=== PATIENT | male | born 1940 | race Caucasian/White ===

== ENCOUNTER 2017-11-17 22:58 | Inpatient (IN) | payer MEDICARE ==
[2017-11-18] MEDS ORDERED: SODIUM CHLORIDE 0.9% 1000ML 1,000 ML IVS ONE (00:06)
--- NOTE | 2017-11-18 00:11 | ED.PDOC ---
History of Present Illness - General Chief Complaint: General Stated Complaint: weakness, repeated falls in the last month Time Seen by Provider: 11/17/17 23:31 Source: patient, family Exam Limitations: no limitations Additional Information: PT C/O 1 MONTH HX OF PROGRESSIVE WEAKNESS WITH FALL TODAY. HAS BEEN SEEN BY PCP MULTIPLE TIMES AND AT THE [facility] YESTERDAY. STATE HE HAS HAD PROGRESSIVE WEAKNESS WITH AMBULATION TO THE POINT NOW THAT HE CANNOT WALK TO THE BATHROOM AND BACK WITHOUT BECOMING WEAK AND FEELING LIKE HE'S GOING TO FALL. - History of Present Illness Initial Comments: LONG TIME SMOKER WITH NO DX OF COPD Severity: moderate Improving Factors: nothing Worsening Factors: movement Associated Symptoms: denies symptoms Allergies/Adverse Reactions: Allergies NO KNOWN ALLERGY Allergy (Verified 11/17/17 23:14) Home Medications: Ambulatory Orders Furosemide Tab [Lasix Tab] 40 mg PO DAILY #10 tab 01/11/16 Oseltamivir Phosphate [Tamiflu] 75 mg PO BID #10 cap 01/11/16 Review of Systems - Review of Systems Constitutional: Denies: chills, fever EENTM: States: no symptoms reported Respiratory: States: short of breath. Denies: cough, orthopnea, wheezing Cardiology: Denies: chest pain, palpitations Gastrointestinal/Abdominal: Denies: abdominal pain, nausea, vomiting Genitourinary: States: no symptoms reported Musculoskeletal: States: no symptoms reported Skin: States: no symptoms reported Neurological: States: weakness - GENERALIZED, NO FOCAL WEAKNESS Endocrine: States: no symptoms reported Hematologic/Lymphatic: States: no symptoms reported Past Medical History (General) - Patient Medical History Hx Seizures: No Hx Stroke: No Hx Dementia: No Hx Asthma: No Hx of COPD: No Hx Cardiac Disorders: No Hx Congestive Heart Failure: No Hx Pacemaker: No Hx Hypertension: No Hx Thyroid Disease: No Hx Diabetes: No Hx Gastroesophageal Reflux: No Hx Renal Disease: No Hx Cancer: No Hx of HIV: No Hx Hepatitis C: No Hx MRSA: No Surgical History: no surgical history - Vaccination History Hx Tetanus, Diphtheria Vaccination: No - unkn Hx Influenza Vaccination: No Hx Pneumococcal Vaccination: No - Social History Hx Tobacco Use: Yes Hx Chewing Tobacco Use: No Hx Alcohol Use: No Hx Substance Use: No Hx Substance Use Treatment: No Hx Depression: Yes Hx Physical Abuse: No Hx Emotional Abuse: No Hx Suspected Abuse: No - Female History Patient : No Family Medical History - Family History Mother Living Status: Hx Family Cancer: Yes - bone Physical Exam - Physical Exam General Appearance: Frail, No apparent distress Eye Exam: bilateral normal Ears, Nose, Throat: hearing grossly normal, normal ENT inspection Neck: non-tender, full range of motion, supple Respiratory: other - DIMINISHED KHANH, NO W/R/R Cardiovascular/Chest: regular rate, rhythm, no murmur Gastrointestinal/Abdominal: normal bowel sounds, soft, no organomegaly Back Exam: normal inspection, no CVA tenderness Extremity: normal range of motion, normal inspection, no pedal edema Neurologic: alert, normal mood/affect Skin Exam: other - HOT DRY Lymphatic: no adenopathy Progress - Progress Progress: 11/18/17 00:51 AMBULATED WITH SATS CONSISTENTLY ABOVE 90% - EKG/XRAY/CT XRAY: chest - RML INFILTRATE Departure - Departure Clinical Impression: COPD suggested by initial evaluation, Elevated blood pressure reading, Tobacco abuse Pneumonia Qualifiers: Pneumonia type: due to Pneumococcus Laterality: right Lung location: middle lobe of lung Qualified Code(s): J13 - Pneumonia due to Streptococcus pneumoniae Time of Disposition: :13 - D/W ELOISA CANAS, AGREES TO ADMIT Disposition: Discharge to Home or Self Care Condition: Fair Departure Forms: ED Discharge - Pt. Copy, Patient Portal Self Enrollment Referrals: FELISA CROSS [Primary Care Provider] - 1-2 Weeks Home Medications: Ambulatory Orders Furosemide Tab [Lasix Tab] 40 mg PO DAILY #10 tab 01/11/16 Oseltamivir Phosphate [Tamiflu] 75 mg PO BID #10 cap 01/11/16
--- NOTE | 2017-11-18 00:29 | RAD ---
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 Left lung is clear. Small right pleural effusion. No identifiable pneumothorax. Prominence of the bilateral hilar shadows. Aortic atherosclerosis. Unremarkable cardiac silhouette. Impression: Focal opacity along the periphery of the right middle lung zone may represent focal scarring, pneumonia, or pulmonary nodule. Consider follow-up chest radiograph in three months. Prominence of the bilateral hilar shadows may be seen with lymphadenopathy or prominent pulmonary vasculature. Electronically signed by: Howie Kong MD 11/18/2017 12:28 AM LOBSTER FISHERMAN
[2017-11-18] MEDS ORDERED: cefTRIAXone SODIUM 1 GM in SODIUM CHL 0.9% 50ML MIN-BAG+ 50 ML IVPB ONE (00:54)
[2017-11-18] MEDS ORDERED: AZITHROMYCIN IV 500 MG in SODIUM CHLORIDE 0.9% 250ML 250 ML IVPB ONE (00:54)
[2017-11-18] MEDS ORDERED: cefTRIAXone SODIUM 1 GM VIAL ONE ×3 (00:58→19:45)
[2017-11-18] MEDS ORDERED: SODIUM CHL 0.9% 50ML MIN-BAG+ 50 ML IVPB ONE ×3 (00:59→19:45)
--- NOTE | 2017-11-18 01:20 | HP ---
HISTORY OF PRESENT ILLNESS: This 77-year-old, white male is admitted to the hospital from the Emergency Room because of worsening shortness of breath and fatigue and difficulty walking, noted to be worsening for the last week. He has had increasing severe weakness and exertional dyspnea off and on for the last 3 to 4 months. He has gotten to the point where he cannot even walk because of extreme weakness. He was seen a number of times at the [facility] this past week and had a DVT ultrasound exam which did not show any DVT present in his lower extremities. He describes no significant fever and chills or sputum production, no hemoptysis. He is describing significant weakness to the point where it makes him unable to do what he feels like he should be able to do. 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 He does have various stressors at home which may contribute a little bit to some of his fatigue state. The patient was admitted to the hospital when it was found that he had a right middle lobe pneumonia, elevated blood pressure with fever and low oxygen as well as a symptomatically low sodium level. He will require physical therapy evaluation as well. PAST MEDICAL HISTORY: 1. History of hypertension on no treatment. PAST SURGICAL HISTORY: To be determined. CURRENT MEDICATIONS: None known. ALLERGIES: NEGATIVE. FAMILY HISTORY: Positive for cerebrovascular accidents, otherwise unremarkable. 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 He has smoked tobacco for over 65 years from 1 to 2 packs per day in the past, now about 1/3 pack per day. REVIEW OF SYSTEMS: GENERAL: He has had some recent weight gain. No fever or chills. HEENT: No significant hearing or visual disturbances. LUNGS: Significant shortness of breath upon exertion, cough, but no sputum, no hemoptysis. CARDIOVASCULAR: No significant palpitations or chest pains. Blood pressure was elevated when he came into the Emergency Room. GASTROINTESTINAL: Appetite has been fairly good. No significant blood in his stool. GENITOURINARY: No dysuria. EXTREMITIES: Very weak in his lower extremities to the point where he is unable to walk. NEUROLOGIC: Leg weakness is noted. No other focal neurologic deficits are evident. PHYSICAL EXAMINATION: VITAL SIGNS: Blood pressure initially was 208/77 with temperature up to 102.9 and now afebrile. Saturation this morning 91% on 1 liter while room air saturation was 85% on room air after admission. Weight 60.3 kg. GENERAL: The patient is awake and alert. He is noticeably weaker and complains of dyspnea upon minimal exertion. He is able to talk in full sentences. HEENT: Within normal limits. LUNGS: Diminished breath sounds with some rhonchi, more prominent on the left than the right with slightly diminished breath sounds on the right base. CARDIOVASCULAR: Heart tones are normal with no significant murmurs at this time. ABDOMEN: Soft with no organomegaly, masses or tenderness. No constipation. EXTREMITIES: Fairly good muscle tone. Trace of edema only. Fairly good range of motion, though weak. NEUROLOGIC: The patient is awake, alert, oriented and communicative. Generalized weakness especially in the lower extremities to evaluated with physical therapy's assistance. LABORATORY: White count 5,100, hemoglobin 13.4. Chemistries show sodium low at 129, potassium 3.8, BUN 23, glucose 103, serum osmolality low at 263. AST 59 , albumin 3.2. Urinalysis showed small amount of hematuria. Blood cultures as well as influenza type A/B nasal swab are negative. Chest x-ray shows evidence of a right middle lobe infiltrate suggesting a pneumonia with followup necessary. Chronic obstructive pulmonary disease present. ASSESSMENT: 1. Acute right middle lobe pneumonia, probably community acquired with cultures pending, started on ceftriaxone and azithromycin. 2. Chronic obstructive pulmonary disease with moderate exacerbation, requiring pulmonary hygiene, bronchodilators and anti-inflammatory treatment. 3. Chronic tobacco abuse, encouraged to stop. 4. Hypoxia, observe closely for the need for oxygen after treatment has been completed. 5. History of hypertension. 6. Febrile illness. 7. Hyponatremia, sodium 129. The patient is symptomatic with altered level of consciousness, significant weakness. 8. History of dystaxia secondary to the significant weakness, possibly contributed to by the hyponatremia as well as the underlying pneumonia which is also contributing to significant weakness. PLAN: The patient will be started on low dose of Norvasc for the significant blood pressure that was noted on admission. Continue with medication nebulizers. Try an ambulation study to evaluate the need for oxygen. Physical therapy to evaluate for rehab potential. Await TSH and cardiac enzymes. Try prednisone, anti-inflammatory. Place on fluid restrictions with some normal saline IV and a touch of loop diuresis to see if it will help begin the process of correcting the hyponatremic state. Again, strongly encouraged to stop smoking. [facility][id number] [facility]
[2017-11-18] MEDS ORDERED: SODIUM CHLORIDE 0.9% 250ML 250 ML ONE (01:30)
[2017-11-18] MEDS ORDERED: AZITHROMYCIN IV 500 MG VIAL IVPB ONE (01:30)
[2017-11-18] MEDS ORDERED: SODIUM CHLORIDE 0.9% (FLUSH) 10 ML SYG IV PRN (02:33)
[2017-11-18] MEDS ORDERED: ALBUTEROL SULFATE 2.5 MG/3 ML VIAL NEB PRN (02:33)
[2017-11-18] MEDS ORDERED: ACETAMINOPHEN 325 MG TAB PO PRN (02:33)
[2017-11-18] MEDS: IV SET AND CAP CHANGE INJ INJ SCH (03:06)
[2017-11-18] MEDS ORDERED: ALBUTEROL SULFATE 2.5 MG/3 ML VIAL NEB ONE (03:26)
[2017-11-18] MEDS: KCL 20 MEQ/NS 1,000 ML IVS PRN ×2 (03:28→17:37)
[2017-11-18] MEDS: ALBUTEROL SULFATE 2.5 MG/3 ML VIAL NEB SCH ×2 (03:59→09:50)
[2017-11-18] MEDS: IPRATROPIUM/ALBUTEROL 3 ML VIAL INH SCH ×4 (08:45→20:28)
[2017-11-18] MEDS: cefTRIAXone SODIUM 1 GM in SODIUM CHL 0.9% 50ML MIN-BAG+ 50 ML IVPB SCH (12:15)
[2017-11-18] MEDS ORDERED: FUROSEMIDE INJ 20 MG/2 ML VIAL IV ONE (13:08)
[2017-11-18] MEDS: amLODIPine BESYLATE 5 MG TAB PO SCH (13:51)
[2017-11-18] MEDS: predniSONE 10 MG TAB PO SCH (13:52)
[2017-11-19] MEDS: cefTRIAXone SODIUM 1 GM in SODIUM CHL 0.9% 50ML MIN-BAG+ 50 ML IVPB SCH ×2 (00:56→13:30)
[2017-11-19] MEDS: KCL 20 MEQ/NS 1,000 ML IVS PRN ×2 (05:30→20:08)
--- NOTE | 2017-11-19 06:57 | RAD ---
EXAM: Two view chest. INDICATION: Pneumonia. COMPARISON: Chest x-ray: 11/18/2017. FINDINGS: Again noted is scarring/atelectasis along the right midlung. There is no focal consolidation. The heart is normal in size. There is no pneumothorax or pleural effusion. The bones are unchanged. IMPRESSION: No acute cardiopulmonary process. Electronically signed by: Eduardo Mathew MD 11/19/2017 6:56 AM PRINTING PRESS OPERATOR Workstation: [id number]
[2017-11-19] MEDS ORDERED: SODIUM CHLORIDE 0.9% 250ML 250 ML ONE (07:24)
[2017-11-19] MEDS ORDERED: AZITHROMYCIN IV 500 MG VIAL IVPB ONE (07:25)
[2017-11-19] MEDS: predniSONE 10 MG TAB PO SCH (08:22)
[2017-11-19] MEDS: amLODIPine BESYLATE 5 MG TAB PO SCH (08:22)
[2017-11-19] MEDS: IPRATROPIUM/ALBUTEROL 3 ML VIAL INH SCH ×4 (08:27→20:13)
[2017-11-19] MEDS ORDERED: AZITHROMYCIN IV 500 MG in SODIUM CHLORIDE 0.9% 250ML 250 ML IVPB SCH (09:00)
[2017-11-19] MEDS: LEVOTHYROXINE SODIUM 0.075 MG TAB PO SCH (09:44)
--- NOTE | 2017-11-19 11:29 | PN ---
DATE: 11/19/17 SUBJECTIVE: The patient is lying in the bed. His respiratory efforts seem to be improving today, but he has not been up ambulating and has not had a desaturation study yet. He is now the second day of parenteral therapy for a previously diagnosed right middle lobe pneumonia. His weakness persists, but hopefully will be able to improve. Awaiting physical therapy evaluation to check on his rehab potential. Appetite is fair. OBJECTIVE: VITAL SIGNS: Afebrile. Pulse 64. Blood pressure 188/83. Pulse oximetry 90% on 1 liter. Awaiting some room air determinations to see if he is in need of oxygen before he is able to go home to be performed today. GENERAL: He is still very weak, but seems to be more alert and communicative today. He is wishing a shower and a shave today. LUNGS: He has rhonchi and pulmonary bronchial hygiene with percussion is being used and he feels it will help, but he needs to tilt his head down a little bit in order to help gravitate some of the secretions out. He has not produced a sputum specimen yet. HEART: Regular. EXTREMITIES: Last evening, he did not like the SCDs, but we are going to try to put them back on him today. LABORATORY: White count is down from 5,000 to 2,500 with 22% bands with repeat followup necessary. Hemoglobin 12.2, platelet count 102. Chemistry shows sodium up from 129 to 135. BUN improved from 23 to 17. Glucose 86. Calcium 8 , albumin 3. TSH is elevated at 7.7. Blood cultures negative. Urinalysis shows small amount of hematuria. RADIOLOGY: Chest x-ray shows some clearing of the right middle lobe infiltrate previously noted. ASSESSMENT: 1. Acute right middle lobe pneumonia, probably community acquired, with negative blood cultures thus far, being treated with ceftriaxone and azithromycin. 2. Chronic obstructive pulmonary disease with an exacerbation, requiring pulmonary hygiene, bronchodilators and anti-inflammatory treatment, showing slight improvement. 3. Chronic tobacco abuse, encouraged to stop. 4. Hypoxia, continue observation to determine whether oxygen is required at home. 5. History of hypertension. 6. Febrile illness, showing immunotherapy. 7. Hyponatremia, sodium 129, improving to 135. 8. History of dystaxia secondary to the significant weakness, possibly contributed to by symptomatic hyponatremia with associated pneumonia and general deconditioning noted. 9. Possible early pancytopenia with low white count, low hemoglobin and low platelets with observation necessary and associated bandemia. The patient was started on low dose prednisone and observe closely with repeat evaluation tomorrow. PLAN: Continue with blood pressure observation as well as determine his need for oxygen prior to discharge home. Physical therapy to evaluate for his rehab potential. TSH is elevated and started on Synthroid supplementation. Again strongly encouraged to stop all smoking. Reevaluation in the morning. #[id number] [facility]
[2017-11-19] MEDS ORDERED: SODIUM CHL 0.9% 50ML MIN-BAG+ 50 ML IVPB ONE (13:25)
[2017-11-19] MEDS ORDERED: cefTRIAXone SODIUM 1 GM VIAL ONE (13:25)
[2017-11-20] MEDS ORDERED: SODIUM CHL 0.9% 50ML MIN-BAG+ 50 ML IVPB ONE ×3 (00:34→19:48)
[2017-11-20] MEDS ORDERED: cefTRIAXone SODIUM 1 GM VIAL ONE ×3 (00:35→19:48)
[2017-11-20] MEDS: cefTRIAXone SODIUM 1 GM in SODIUM CHL 0.9% 50ML MIN-BAG+ 50 ML IVPB SCH ×2 (01:01→12:05)
[2017-11-20] MEDS: LEVOTHYROXINE SODIUM 0.075 MG TAB PO SCH (06:36)
[2017-11-20] MEDS: IPRATROPIUM/ALBUTEROL 3 ML VIAL INH SCH ×4 (07:17→20:25)
[2017-11-20] MEDS ORDERED: SODIUM CHLORIDE 0.9% 250ML 0 ML ONE (08:23)
[2017-11-20] MEDS ORDERED: AZITHROMYCIN IV 500 MG VIAL IVPB ONE (08:23)
[2017-11-20] MEDS: predniSONE 10 MG TAB PO SCH (08:48)
[2017-11-20] MEDS: AZITHROMYCIN 250 MG TAB PO SCH (08:48)
[2017-11-20] MEDS: amLODIPine BESYLATE 5 MG TAB PO SCH (08:49)
[2017-11-20] MEDS ORDERED: POTASSIUM CHLORIDE 20 MEQ TAB PO ONE (08:58)
[2017-11-20] MEDS: SODIUM CHLORIDE 0.9% (FLUSH) 10 ML SYG IV SCH ×2 (09:28→20:53)
[2017-11-20] MEDS ORDERED: amLODIPine BESYLATE 5 MG TAB PO ONE (10:04)
[2017-11-20] MEDS ORDERED: amLODIPine BESYLATE 5 MG TAB ONE (10:10)
--- NOTE | 2017-11-20 11:30 | PN ---
SUPERVISING PHYSICIAN: Howie Tabor MD DATE: 11/20/17 SUBJECTIVE: The patient is sitting in his hospital bed. He is in no acute distress. He denies any shortness of breath, nausea, vomiting, diarrhea, or chest pain, although he says he has not gotten up much because at times gets quite short of breath even at rest. OBJECTIVE: VITAL SIGNS: Afebrile. Heart rate 73. Respiratory rate 20. Blood pressure 187/84. O2 saturation has been as low as 90% on 2 liters nasal cannula. It is up to 93% right now. LUNGS: Diminished breath sounds throughout. No wheezes noted. He becomes tachypneic at rest with a respiratory rate 22 to 24. CARDIAC: Regular rate and rhythm. GASTROINTESTINAL: Abdomen is soft, nondistended, nontender. Bowel sounds are positive. EXTREMITIES: No cyanosis, clubbing or edema. NEUROLOGIC: Awake, alert and oriented times three. LABORATORY: WBC 2.3, hemoglobin 12.5, hematocrit 393., platelet count 102. Sodium 136, potassium 3.5, chloride 99, calcium 7.8. Preliminary blood cultures showed no growth after 24 hours. All other labs and films have been reviewed via the EMR. ASSESSMENT: 1. Acute right middle lobe pneumonia, most likely community acquired, with negative blood cultures, currently being treated with ceftriaxone and azithromycin. 2. Chronic obstructive pulmonary disease with acute exacerbation, that will continue to require aggressive pulmonary hygiene, bronchodilators and anti- inflammatory treatment. He is showing slight improvement. 3. Chronic tobacco abuse, encouraged to stop. 4. Hypoxia, most likely will need home oxygen as he has dyspnea at rest and his oxygen saturations drop down into the mid-80s when oxygen is taken off. 5. Hypertension. 6. Febrile illness. 7. Leukopenia as well as thrombocytopenia, unknown etiology. 8. 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 PLAN: We will continue present supportive care. His blood pressure has been quite elevated since admission, so I will increase his amlodipine from 2.5 to 5 mg daily. We have initiated orders for home oxygen as well as nebulizer treatments at home. I have ordered routine labs in the morning as well as chest x-ray. I have given him one dose extra of potassium today and discontinued his IV fluids. He will need a hematology referral on discharge due to his pancytopenia. At this point, he has agreed to see Dr. Gordon at [facility] and family members as well as the patient would like to explore the possibility of being discharged to a correction for physical therapy and conditioning. Otherwise, we will continue to monitor the patient closely and follow as needed. Dr. Tabor is the collaborating physician and available for consultation. [facility][id number] [facility]
[2017-11-20] MEDS ORDERED: predniSONE 10 MG TAB PO ONE (14:30)
[2017-11-21] MEDS: cefTRIAXone SODIUM 1 GM in SODIUM CHL 0.9% 50ML MIN-BAG+ 50 ML IVPB SCH ×2 (01:13→14:10)
[2017-11-21] MEDS: IV SET AND CAP CHANGE INJ INJ SCH (03:11)
[2017-11-21] MEDS: LEVOTHYROXINE SODIUM 0.075 MG TAB PO SCH (06:29)
--- NOTE | 2017-11-21 07:31 | RAD ---
EXAM DESCRIPTION: Chest,2 Views CLINICAL HISTORY: pna follow-up pneumonia COMPARISON: November 19, 2017 FINDINGS: Two-view chest x-ray shows enlargement of cardiac silhouette without pulmonary vascular congestion. Lungs are normally aerated. Interstitial nodular densities in the right perihilar and right lower lobe region are again seen with mild increased interstitial markings in the left lower lobe retrocardiac region. Lateral view shows blunting of the posterior costophrenic angle slightly increased from previous exam. Mild disc degenerative changes of the spine are seen. IMPRESSION: Right perihilar and lower lobe infiltrates with questionable increased interstitial markings in the left lower lobe are again seen to slightly increased from previous exam suggesting areas of pneumonia versus pneumonitis and/or atelectasis. Continued follow-up until resolution to exclude neoplastic process is recommended. Small bilateral pleural effusions are slightly increased from previous exam. Electronically signed by: Camden Thomas MD 11/21/2017 7:30 AM NEUROLOGY MANAGER
[2017-11-21] MEDS: IPRATROPIUM/ALBUTEROL 3 ML VIAL INH SCH ×3 (08:12→18:00)
[2017-11-21] MEDS ORDERED: LISINOPRIL 10 MG TAB PO SCH (09:00)
[2017-11-21] MEDS ORDERED: predniSONE 20 MG TAB PO SCH (09:00)
[2017-11-21] MEDS ORDERED: amLODIPine BESYLATE 5 MG TAB PO SCH (09:00)
[2017-11-21] MEDS: SODIUM CHLORIDE 0.9% (FLUSH) 10 ML SYG IV SCH (09:19)
[2017-11-21] MEDS: AZITHROMYCIN 250 MG TAB PO SCH (09:19)
[2017-11-21] MEDS ORDERED: cefTRIAXone SODIUM 1 GM VIAL ONE (14:05)
[2017-11-21] MEDS ORDERED: SODIUM CHL 0.9% 50ML MIN-BAG+ 50 ML IVPB ONE (14:05)
[2017-11-21 16:02] VITALS: O2SAT 92
[2017-11-21 16:45] VITALS: BP 165/88; TEMP 97.6
--- NOTE | 2017-11-29 18:14 | DS ---
SUPERVISING PHYSICIAN: Howie Tabor M.D. DISCHARGE DIAGNOSIS: 1. Acute right middle lobe pneumonia, most likely community acquired, with negative blood cultures, currently being treated with ceftriaxone and azithromycin. 2. Chronic obstructive pulmonary disease with acute exacerbation, that will continue to require aggressive pulmonary hygiene, bronchodilators and anti- inflammatory treatment. He is showing slight improvement. 3. Chronic tobacco abuse, encouraged to stop. 4. Hypoxia, most likely will need home oxygen as he has dyspnea at rest and his oxygen saturations drop down into the mid-80s when oxygen is taken off. 5. Hypertension. 6. Febrile illness. 7. Leukopenia as well as thrombocytopenia, unknown etiology. 8. 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 HISTORY OF PRESENT ILLNESS: This is a 77 year-old male patient who was admitted to the hospital from the Emergency Room due to worsening shortness of breath, fatigue and difficulty walking that had worsened over the week prior to admission. He had increasing severe weakness and exertional dyspnea off and on for the last 3 to 4 months. He lives by himself and he had gotten to the point where he could not even walk because of his weakness. He had been seen a number of times in [place]. He also had a DVT ultrasound that was negative. He had had no significant fever or chills. He has minimal support at home and a family member has been with the patient most of the time. He was admitted for right middle lobe pneumonia and elevated blood pressure plus a fever and low oxygen saturation. HOSPITAL COURSE: Over the course of his hospital stay, his vital signs stabilized. He had a low WBC that may be chronic in nature but it had gotten as low at 2.1 on date of discharge. He also had some thrombocytopenia that on the day of discharge was 112. His electrolytes are mostly within normal limits. His blood pressure cultures showed no growth after 5 days. His flu swabs were negative. After extensive talks with the family it was decided that the patient would benefit from being admitted to [facility] for physical therapy, strengthening and conditioning. He was felt to be unsafe to go home, so he will be discharged to [facility] today. DISCHARGE PLAN: The patient will be discharged to [facility] today for strengthening and conditioning with physical therapy. He is to followup with his primary care provider, Dr. Baljit Oliva, in the next 1 to 2 weeks. He is to resume his previous diet and increase his activity as tolerated and as per Physical Therapy. He is to return to the hospital for any further problems or complications. It may be beneficial for the patient to see Hematology due to his pancytopenia. DISCHARGE MEDICATIONS: 1. Albuterol. 2. Amlodipine. 3. Azithromycin. 4. DuoNeb. 5. Synthroid. 6. Lisinopril. 7. Prednisone. #[id number] and [id number] [facility]
== END 2017-11-21 18:15 | DRG 640 ==
LOC: ER 22:58 → MS 11-18 01:18 → OBSVTOIN 11-18 01:18
PROVIDERS: ADMIT Nurse Practitioner Family; ATTEND Nurse Practitioner Acute Care
DX: E87.1 Hypo-osmolality and hyponatremia (principal); J18.9 Pneumonia, unspecified organism; J44.1 Chronic obstructive pulmonary disease with (acute) exacerbation; R09.02 Hypoxemia; I10 Essential (primary) hypertension; D72.819 Decreased white blood cell count, unspecified; D69.6 Thrombocytopenia, unspecified; R29.6 Repeated falls; F17.210 Nicotine dependence, cigarettes, uncomplicated; R53.1 Weakness

== ENCOUNTER → 2017-11-28 | Outpatient (CLI) | payer MEDICARE | LOC: GT 07:56 | PROVIDERS: ATTEND Internal Medicine | DX: E03.9 Hypothyroidism, unspecified (principal) | CPT/HCPCS: 36415; 84443; P9603 ==

== ENCOUNTER 2017-12-01 15:04 | Emergency (ER) | payer MEDICARE ==
[2017-12-01 15:40] VITALS: TEMP 98.7; O2SAT 96
--- NOTE | 2017-12-01 16:01 | ED.PDOC ---
History of Present Illness - General Chief Complaint: Cardiovascular Problem Stated Complaint: hypertension Time Seen by Provider: 12/01/17 15:53 Source: patient Exam Limitations: no limitations - History of Present Illness Initial Comments: Philip Cancino 77 y/o male came to accompanied by son after it was noted blood pressure was elevated today at the [facility] with systolic [id number] according to patient stated did not take his Bp medication today.Also stated had some dull headache with left side of head throbbing.No blurry vision,no chest pains.He was hospitalized for PNA last week and was discharge to [place]. Timing/Duration: 4-6 hours Severity: moderate Improving Factors: nothing Worsening Factors: other - non compliance with bp medications Associated Symptoms: other - see hpi Allergies/Adverse Reactions: Allergies NO KNOWN ALLERGY Allergy (Verified 11/17/17 23:14) Home Medications: Ambulatory Orders Albuterol Sulfate Nebs [Proventil Nebs] 2.5 mg NEB PRN PRN vial 11/21/17 Azithromycin Tab [Zithromax Tab] 250 mg PO QD #3 tab 11/21/17 Ipratropium/Albuterol [Duoneb] 3 ml INH RTQID vial 11/21/17 Levothyroxine Sodium [Synthroid] 0.075 mg PO DAILY@0630 tab 11/21/17 Lisinopril [Prinivil] 20 mg PO DAILY tab 11/21/17 amLODIPine BESYLATE [Norvasc] 5 mg PO DAILY tab 11/21/17 predniSONE See Taper PO DAILY #30 tab 11/21/17 Review of Systems - Review of Systems Constitutional: States: no symptoms reported EENTM: States: no symptoms reported Respiratory: States: no symptoms reported Cardiology: States: no symptoms reported Gastrointestinal/Abdominal: States: no symptoms reported Genitourinary: States: no symptoms reported Musculoskeletal: States: no symptoms reported Skin: States: no symptoms reported Neurological: States: see HPI, headache All other Systems: Reviewed and Negative, No Change from Baseline Past Medical History (General) - Patient Medical History Hx Seizures: No Hx Stroke: No Hx Dementia: No Hx Asthma: No Hx of COPD: No Hx Cardiac Disorders: No Hx Congestive Heart Failure: No Hx Pacemaker: No Hx Hypertension: Yes Hx Thyroid Disease: No Hx Diabetes: No Hx Gastroesophageal Reflux: No Hx Renal Disease: No Hx Cancer: No Hx of HIV: No Hx Hepatitis C: No Hx MRSA: No Surgical History: no surgical history - Vaccination History Hx Tetanus, Diphtheria Vaccination: No - unkn Hx Influenza Vaccination: No Hx Pneumococcal Vaccination: No - Social History Hx Tobacco Use: Yes Hx Chewing Tobacco Use: No Hx Alcohol Use: No Hx Substance Use: No Hx Substance Use Treatment: No Hx Depression: Yes Hx Physical Abuse: No Hx Emotional Abuse: No Hx Suspected Abuse: No - Activities of Daily Living Prison/Assisted Living (if applicable):: [place] G[place] Ability: Independent Eating (Feeding) Ability: Independent Toileting Ability: Independent - Female History Patient : No Family Medical History - Family History Mother Living Status: Hx Family Cancer: Yes - bone Physical Exam - Physical Exam General Appearance: Alert, Comfortable, No apparent distress Eye Exam: bilateral normal Ears, Nose, Throat: hearing grossly normal, normal ENT inspection, normal pharynx Neck: non-tender, full range of motion, supple Respiratory: lungs clear, decreased breath sounds Cardiovascular/Chest: regular rate, rhythm, no edema, no murmur Peripheral Pulses: radial,right: 2+, radial,left: 2+ Gastrointestinal/Abdominal: non tender, soft, no organomegaly Back Exam: no CVA tenderness, no vertebral tenderness Extremity: non-tender, normal inspection, no calf tenderness Neurologic: no motor/sensory deficits, alert, oriented x 3 Skin Exam: normal color, warm/dry Lymphatic: no adenopathy Progress - Progress Progress: 12/01/17 17:27 Vital Signs 12/01/17 12/01/17 12/01/17 15:20 15:35 15:41 Temperature 98.7 F Pulse Rate [ 69 73 73 right brachial] Respiratory 20 18 Rate Blood Pressure 188/80 172/83 [right brachial ] O2 Sat by Pulse 96 96 Oximetry 12/01/17 12/01/17 16:42 16:56 Temperature Pulse Rate [ 68 58 L right brachial] Respiratory 18 20 Rate Blood Pressure 202/81 150/77 [right brachial ] O2 Sat by Pulse 96 96 Oximetry 12/01/17 17:30 Blood pressure on downward trend after labetalol 12/01/17 17:39 - Results/Orders Results/Orders: Laboratory Tests 12/01/17 12/01/17 16:40 16:40 WBC 7.4 RBC 5.65 Hgb 13.8 L Hct 43.2 MCV 76.5 L MCH 24.4 L MCHC 31.9 L RDW 14.5 Plt Count 234 MPV 6.7 L Absolute Neuts (auto) 5.10 Absolute Lymphs (auto) 1.30 Absolute Monos (auto) 0.80 Absolute Eos (auto) 0.10 Absolute Basos (auto) 0.10 Neutrophils % 69.0 Lymphocytes % 17.7 L Monocytes % 10.3 H Eosinophils % 1.9 Basophils % 1.1 Sodium 140 Potassium 4.1 Chloride 99 L Carbon Dioxide 30 Anion Gap 15.1 BUN 18 Creatinine 0.80 BUN/Creatinine Ratio 22.5 H Random Glucose 99 Serum Osmolality 281.3 Calcium 8.9 - EKG/XRAY/CT CT Ordered: Yes - head-no acute abnormality Departure - Departure Clinical Impression: Hypertension Qualifiers: Hypertension type: unspecified Qualified Code(s): I10 - Essential (primary) hypertension Headache Qualifiers: Headache type: unspecified Headache chronicity pattern: unspecified pattern Intractability: not intractable Qualified Code(s): R51 - Headache Time of Disposition: 17:31 Disposition: Discharge to SNF Condition: Fair Departure Forms: ED Discharge - Pt. Copy, Patient Portal Self Enrollment Referrals: BALJIT CROSS [Primary Care Provider] - 1-2 Weeks Home Medications: Ambulatory Orders Albuterol Sulfate Nebs [Proventil Nebs] 2.5 mg NEB PRN PRN vial 11/21/17 Azithromycin Tab [Zithromax Tab] 250 mg PO QD #3 tab 11/21/17 Ipratropium/Albuterol [Duoneb] 3 ml INH RTQID vial 11/21/17 Levothyroxine Sodium [Synthroid] 0.075 mg PO DAILY@0630 tab 11/21/17 Lisinopril [Prinivil] 20 mg PO DAILY tab 11/21/17 amLODIPine BESYLATE [Norvasc] 5 mg PO DAILY tab 11/21/17 predniSONE See Taper PO DAILY #30 tab 11/21/17 Additional Instructions: NEED TO TAKE YOUR BLOOD PRESSURE REGULARLY;Continue with all home medications; Follow up with Dr. Baljit Cross 12/03/2017
--- NOTE | 2017-12-01 16:41 | CT ---
EXAM DESCRIPTION: Head CLINICAL HISTORY: elevated bp/headache COMPARISON: None TECHNIQUE: Noncontrast transaxial CT images of the head are obtained from base to vertex. This exam was performed according to our departmental dose-optimization program, which includes automated exposure control, adjustment of the mA and/or kV according to patient size and/or use of iterative reconstruction technique. FINDINGS: The midline structures are not displaced. Sulci are age-appropriate. There are areas of decreased attenuation in the periventricular white matter and the white matter of the centrum semiovale. There is no evidence of mass, mass-effect, hydrocephalus, or acute intracranial hemorrhage. No abnormal extra axial fluid collection is seen. Severe calcifications of the intracranial carotid arteries are noted. Bone windows show no evidence of depressed skull fracture. The visualized paranasal sinuses show mild mucosal thickening in the ethmoid air cells.. IMPRESSION: 1. Age-appropriate atrophy with evidence of old small vessel ischemic type changes seen. 2. No acute abnormality is seen on noncontrast CT of the head. Electronically signed by: Camden Thomas MD 12/01/2017 4:40 PM [facility]
[2017-12-01] MEDS: LABETALOL INJ 5 MG/ML VIAL IV ONE (16:50)
[2017-12-01 16:57] VITALS: BP 150/77
[2017-12-01] MEDS: LISINOPRIL 10 MG TAB PO ONE (17:34)
[2017-12-01] MEDS: amLODIPine BESYLATE 5 MG TAB PO ONE (17:34)
== END 2017-12-01 17:45 ==
LOC: ER 15:04
DX: I10 Essential (primary) hypertension (principal); R51 Headache; Z87.891 Personal history of nicotine dependence

== ENCOUNTER → 2018-02-09 | Outpatient (CLI) | payer MEDICARE | LOC: NC 16:48 | PROVIDERS: ATTEND Family Medicine | DX: J44.9 Chronic obstructive pulmonary disease, unspecified (principal); I10 Essential (primary) hypertension; E03.9 Hypothyroidism, unspecified; I50.40 Unspecified combined systolic (congestive) and diastolic (congestive) heart failure; I25.10 Atherosclerotic heart disease of native coronary artery without angina pectoris ==